=== PATIENT | male | born 1965 | race Caucasian/White ===

== ENCOUNTER 2020-12-27 20:14 | Emergency (ER) | payer OTHER ==
[~2020-12-27] VITALS: Ht 170.2 cm; Wt 74.8 kg
[2020-12-27 20:20] VITALS: BP_SYST 128
[2020-12-27] MEDS ORDERED: HYDROcodone/ACETAMIN 5-325 MG TAB (NORCO/ VICODIN) PO ONE (20:45)
[2020-12-27] MEDS ORDERED: DIPH-TET-PERTUS Vaccine 0.5 ML VIAL (ADACEL) I.M. ONE ×2 (20:45→20:51)
[2020-12-27] MEDS ORDERED: HYDROcodone/ACETAMIN 5-325 MG TAB (NORCO/ VICODIN) ONE (20:50)
[2020-12-27] MEDS ORDERED: BACI15OI13 TP (20:55)
[2020-12-27] MEDS ORDERED: BACITRACIN 1 GM OINT TP ONE (21:25)
== END 2020-12-27 21:20 | disposition home or self-care (01) ==
LOC: SED 20:14
DX: S01.112A Laceration without foreign body of left eyelid and periocular area, initial encounter (principal); I10 Essential (primary) hypertension; Z79.899 Other long term (current) drug therapy; W22.8XXA Striking against or struck by other objects, initial encounter; Y93.89 Activity, other specified; Y92.89 Other specified places as the place of occurrence of the external cause; Y99.8 Other external cause status
CPT/HCPCS: 90715; 99283

== ENCOUNTER 2020-12-29 09:24 | Emergency (ER) | payer OTHER ==
[~2020-12-29] VITALS: Ht 170.2 cm; Wt 81.6 kg
[~2020-12-29 09:24] MED LIST: BACI15OI13 TP
[2020-12-29 09:37] VITALS: BP_SYST 149
[2020-12-29 10:12] VITALS: BP_SYST 149
== END 2020-12-29 10:11 | disposition home or self-care (01) ==
LOC: SED 09:24
DX: S01.112D Laceration without foreign body of left eyelid and periocular area, subsequent encounter (principal); Z48.00 Encounter for change or removal of nonsurgical wound dressing; W45.8XXD Other foreign body or object entering through skin, subsequent encounter
CPT/HCPCS: 99281

== ENCOUNTER 2021-05-06 11:00 | Emergency (ER) | payer OTHER ==
[~2021-05-06] VITALS: Ht 170.2 cm; Wt 74.8 kg
[2021-05-06 11:00] VITALS: BP_SYST 144
[2021-05-06 12:21] VITALS: BP_SYST 139
== END 2021-05-06 12:22 | disposition home or self-care (01) ==
LOC: SED 11:00
DX: T16.2XXA Foreign body in left ear, initial encounter (principal); I10 Essential (primary) hypertension; X58.XXXA Exposure to other specified factors, initial encounter; Y93.89 Activity, other specified; Y92.89 Other specified places as the place of occurrence of the external cause; Y99.8 Other external cause status
CPT/HCPCS: 99284